=== PATIENT | female | born 1980 | race Caucasian/White ===

== ENCOUNTER 2021-12-02 17:23 | Emergency (ER) | payer OTHER | END 2021-12-02 20:48 | disposition left against medical advice (07) | LOC: FER 17:23 | DX: S61.012A Laceration without foreign body of left thumb without damage to nail, initial encounter (principal); S61.211A Laceration without foreign body of left index finger without damage to nail, initial encounter; Z28.310 Unvaccinated for COVID-19; Z53.29 Procedure and treatment not carried out because of patient's decision for other reasons; X58.XXXA Exposure to other specified factors, initial encounter | CPT/HCPCS: 99281 ==